=== PATIENT | male | born 1970 | race Caucasian/White ===

== ENCOUNTER 2021-03-17 10:13 | Emergency (ER) | payer MEDICAID ==
[~2021-03-17] VITALS: Ht 162.6 cm; Wt 82.0 kg
[2021-03-17] MEDS ORDERED: ASPI-1497 PO (10:19)
[2021-03-17 10:57] LABS: CHLORIDE 104 mEq/L (98-107)
[2021-03-17] MEDS ORDERED: LORAZEPAM 1MG TABLET PO ONE (11:00)
[2021-03-17] MEDS ORDERED: SODIUM CHLORIDE 0.9% 1,000 ML IV ONE (11:00)
[2021-03-17 11:01] LABS: ETHANOL BLOOD < 10 mg/dL
[2021-03-17 11:07] LABS: BASOPHILS % 0.3 % (0.0-2.0); HEMOGLOBIN. 14.2 g/dL (14.0-18.0); LYMPHOCYTES % 39.1 % (20.0-50.0); MEAN CORPUSCULAR HEMOGLOBIN 32.7 pg (28.0-32.0); MEAN PLATELET VOLUME 7.8 fl (7.4-10.4); MONOCYTES % 7.9 % (2.0-8.0); NEUTROPHILS % 50.7 % (40.0-76.0); PLATELET 354 x1000/uL (130-400); RED BLOOD CELL COUNT 4.33 mill/uL (4.7-6.1); RED CELL DISTRIBUTION WIDTH 13.2 % (11.6-14.6)
[2021-03-17] MEDS ORDERED: POTASSIUM CHLORIDE 20MEQ TABLET SR PO NR (11:15)
[2021-03-17] MEDS ORDERED: LORA-250 MT (13:11)
[2021-03-17 13:45] VITALS: BP 127/81
== END 2021-03-17 14:00 | disposition home or self-care (01) ==
LOC: ER 10:13
DX: F41.1 Generalized anxiety disorder (principal); R07.89 Other chest pain; F10.10 Alcohol abuse, uncomplicated; J45.909 Unspecified asthma, uncomplicated; F12.10 Cannabis abuse, uncomplicated; Y90.0 Blood alcohol level of less than 20 mg/100 ml; Z79.82 Long term (current) use of aspirin
CPT/HCPCS: 36415; 71045; 80053; 80320; 83690; 84484; 85025; 93005; 96360; 99285; J7030; G0480

== ENCOUNTER 2021-11-07 01:54 | Emergency (ER) | payer MEDICAID ==
[~2021-11-07] VITALS: Ht 162.6 cm; Wt 79.0 kg
[~2021-11-07 01:54] MED LIST: ASPI-1497 PO; HYDR-3992 MT; LORA-250 MT
[2021-11-07] MEDS ORDERED: PREDNISONE 20MG TABLET PO STA (02:55)
[2021-11-07] MEDS ORDERED: ALBUTEROL (0.083%) 2.5MG/3ML NEB HHN STA (02:55)
[2021-11-07] MEDS ORDERED: IPRATROPIUM BROMIDE (0.02%) 0.5MG/2.5ML NEB HHN STA (02:55)
[2021-11-07] MEDS ORDERED: ALBU6.7H9 INH (04:43)
[2021-11-07] MEDS ORDERED: P50 MT (04:43)
[2021-11-07 04:48] VITALS: BP 135/81
== END 2021-11-07 06:03 | disposition home or self-care (01) ==
LOC: ER 01:54
DX: J45.901 Unspecified asthma with (acute) exacerbation (principal); F41.9 Anxiety disorder, unspecified; Z79.899 Other long term (current) drug therapy
CPT/HCPCS: 71045; 94640; 99283; J7512; Z7610

== ENCOUNTER 2022-10-20 17:20 | Emergency (ER) | payer MEDICAID ==
[~2022-10-20] VITALS: Ht 162.6 cm; Wt 82.0 kg
[~2022-10-20 17:20] MED LIST changes: +ALBU6.7H3 INH; +P50 MT
[2022-10-20 17:25] VITALS: BP 133/86
== END 2022-10-20 19:45 | disposition left against medical advice (07) ==
LOC: ER 17:20
DX: Z53.21 Procedure and treatment not carried out due to patient leaving prior to being seen by health care provider (principal)

== ENCOUNTER 2023-09-05 18:36 | Emergency (ER) | payer MEDICAID ==
[~2023-09-05] VITALS: Ht 162.6 cm; Wt 75.0 kg
[2023-09-05] MEDS ORDERED: IPRATROPIUM BROMIDE (0.02%) 0.5MG/2.5ML NEB HHN STA (19:23)
[2023-09-05] MEDS ORDERED: PREDNISONE 20MG TABLET PO STA (19:23)
[2023-09-05 19:30] VITALS: TEMP 98.8
[2023-09-05 19:41] LABS: BASOPHILS % 0.3 % (0.0-2.0); EOSINOPHILS % 4.2 % (0.0-5.0); HEMATOCRIT. 40.5 % (42.0-52.0); HEMOGLOBIN. 13.5 g/dL (14.0-18.0); LYMPHOCYTES % 21.5 % (20.0-50.0); MEAN CORPUSCULAR HEMOGLOBIN 31.4 pg (28.0-32.0); MEAN CORPUSCULAR HGB CONC 33.4 g/dL (31.0-37.0); MEAN CORPUSCULAR VOLUME 93.9 fL (80.0-94.0); MEAN PLATELET VOLUME 8.4 fl (7.4-10.4); MONOCYTES % 9.2 % (2.0-8.0); NEUTROPHILS % 64.8 % (40.0-76.0); PLATELET 274 x1000/uL (130-400); RED BLOOD CELL COUNT 4.31 mill/uL (4.7-6.1); RED CELL DISTRIBUTION WIDTH 13.6 % (11.6-14.6); WHITE BLOOD COUNT 9.3 x1000/uL (4.5-11.0)
[2023-09-05 19:53] VITALS: PULSE 83; RESP 18; O2SAT 99
[2023-09-05] MEDS: ALBUTEROL (0.083%) 2.5MG/3ML NEB HHN SCH ×3 (19:54→21:07)
[2023-09-05 19:56] LABS: ALANINE AMINOTRANSFERASE 24 IU/L (10-49); ALBUMIN 4.4 g/dL (3.2-4.8); ASPARTATE AMINOTRANSFERASE 23 IU/L (<34); BILIRUBIN TOTAL 0.5 mg/dL (0.1-1.0); CALCIUM 8.9 mg/dL (8.7-10.4); CARBON DIOXIDE 27 mEq/L (21-32); CHLORIDE 104 mEq/L (98-107); CREATININE 0.7 mg/dL (0.6-1.3); GLUCOSE 121 mg/dL (70-105); POTASSIUM 3.9 mEq/L (3.5-5.1); PROTEIN TOTAL 7.5 g/dL (6.0-8.3); SODIUM 137 mEq/L (136-145); UREA NITROGEN BLOOD 13 mg/dL (9-23)
[2023-09-05 20:17] LABS: TROPONIN I HIGH SENSITIVITY < 4 ng/L (3.0-53)
[2023-09-05 20:48] VITALS: PULSE 88; RESP 18; O2SAT 100
[2023-09-05 21:07] VITALS: PULSE 86; RESP 18; O2SAT 99
[2023-09-05] MEDS ORDERED: ALBUTEROL (0.083%) 2.5MG/3ML NEB HHN ONE (21:15)
[2023-09-05] MEDS ORDERED: P20 MT (21:34)
[2023-09-05] MEDS ORDERED: ALBU6.7H15 INH (21:34)
[2023-09-05 22:00] VITALS: BP 118/70; PULSE 108; RESP 20
== END 2023-09-05 22:00 | disposition home or self-care (01) ==
LOC: ER 18:36
DX: J45.901 Unspecified asthma with (acute) exacerbation (principal)
CPT/HCPCS: 80053; 85025; 84484; 36415; 71045; 94640; 93005; 99285; J7512; Z7610 ×3

== ENCOUNTER 2023-10-05 01:59 | Emergency (ER) | payer MEDICAID ==
[~2023-10-05] VITALS: Ht 160 cm; Wt 77.9 kg
[~2023-10-05 01:59] MED LIST changes: +ALBU6.7H15 INH; +P20 MT
[2023-10-05 02:24] VITALS: BP 120/78; PULSE 62; RESP 15; TEMP 98.5; O2SAT 98
[2023-10-05 02:46] LABS: BASOPHILS % 0.6 % (0.0-2.0); EOSINOPHILS % 4.2 % (0.0-5.0); HEMATOCRIT. 42.8 % (42.0-52.0); HEMOGLOBIN. 14.5 g/dL (14.0-18.0); LYMPHOCYTES % 36.3 % (20.0-50.0); MEAN CORPUSCULAR HGB CONC 33.9 g/dL (31.0-37.0); MEAN CORPUSCULAR VOLUME 91.5 fL (80.0-94.0); MEAN PLATELET VOLUME 8.1 fl (7.4-10.4); MONOCYTES % 12.2 % (2.0-8.0); NEUTROPHILS % 46.7 % (40.0-76.0); PLATELET 282 x1000/uL (130-400); RED BLOOD CELL COUNT 4.68 mill/uL (4.7-6.1); RED CELL DISTRIBUTION WIDTH 13.9 % (11.6-14.6); WHITE BLOOD COUNT 7.5 x1000/uL (4.5-11.0)
[2023-10-05 02:54] LABS: PARTIAL THROMBOPLASTIN TIME 28.1 sec (23.4-31.0); PROTHROMBIN TIME 10.3 sec (9.6-11.0)
[2023-10-05 02:59] LABS: ALANINE AMINOTRANSFERASE 26 IU/L (10-49); ALBUMIN 4.2 g/dL (3.2-4.8); ASPARTATE AMINOTRANSFERASE 24 IU/L (<34); BILIRUBIN TOTAL 0.8 mg/dL (0.1-1.0); CARBON DIOXIDE 22 mEq/L (21-32); CHLORIDE 107 mEq/L (98-107); CREATININE 0.7 mg/dL (0.6-1.3); GLUCOSE 101 mg/dL (70-105); PROTEIN TOTAL 7.6 g/dL (6.0-8.3); SODIUM 137 mEq/L (136-145); UREA NITROGEN BLOOD 10 mg/dL (9-23)
[2023-10-05 03:20] LABS: TROPONIN I HIGH SENSITIVITY < 4 ng/L (3.0-53)
== END 2023-10-05 04:34 | disposition left against medical advice (07) ==
LOC: ER 01:59
DX: J45.909 Unspecified asthma, uncomplicated (principal); I49.9 Cardiac arrhythmia, unspecified
CPT/HCPCS: 36415; 71045; 80053; 84484; 85025; 93005; 99281

== ENCOUNTER 2024-05-11 02:27 | Emergency (ER) | payer MEDICAID ==
[~2024-05-11] VITALS: Ht 160 cm; Wt 81.6 kg
[2024-05-11 02:37] VITALS: BP 140/90; TEMP 98.3; O2SAT 99
[2024-05-11] MEDS: DEXAMETHASONE 10 MG/ML VIAL IM ONE (02:45)
[2024-05-11] MEDS ORDERED: IPRATROPIUM/ALBUTEROL 0.5-3(2.5)MG/3ML NEB HHN ONE (02:45)
[2024-05-11 03:00] VITALS: PULSE 72; RESP 16
[2024-05-11] MEDS ORDERED: IPRATROPIUM BROMIDE (0.02%) 0.5MG/2.5ML NEB HHN STA (03:59)
[2024-05-11] MEDS ORDERED: ALBUTEROL (0.083%) 2.5MG/3ML NEB HHN STA (03:59)
[2024-05-11] MEDS ORDERED: ASPIRIN 81MG TABLET PO ONE (04:00)
[2024-05-11] MEDS ORDERED: NITROGLYCERIN 0.4MG TABLET SL SL PRN (04:00)
[2024-05-11 04:42] LABS: BASOPHILS % 0.8 % (0.0-2.0); EOSINOPHILS % 5.7 % (0.0-5.0); HEMATOCRIT. 40.6 % (42.0-52.0); HEMOGLOBIN. 13.8 g/dL (14.0-18.0); MEAN CORPUSCULAR HEMOGLOBIN 31.8 pg (28.0-32.0); MEAN CORPUSCULAR HGB CONC 34.1 g/dL (31.0-37.0); MEAN CORPUSCULAR VOLUME 93.3 fL (80.0-94.0); MEAN PLATELET VOLUME 8.4 fl (7.4-10.4); MONOCYTES % 11.5 % (2.0-8.0); PLATELET 269 x1000/uL (130-400); RED BLOOD CELL COUNT 4.35 mill/uL (4.7-6.1); RED CELL DISTRIBUTION WIDTH 13.7 % (11.6-14.6); WHITE BLOOD COUNT 9.3 x1000/uL (4.5-11.0)
[2024-05-11 04:50] LABS: CHLORIDE 105 mEq/L (98-107); POTASSIUM 3.6 mEq/L (3.5-5.1); SODIUM 138 mEq/L (136-145)
[2024-05-11 04:51] LABS: CALCIUM 9.4 mg/dL (8.7-10.4); CARBON DIOXIDE 25 mEq/L (21-32)
[2024-05-11 04:56] LABS: CREATININE 0.8 mg/dL (0.6-1.3); GLUCOSE 146 mg/dL (70-105); UREA NITROGEN BLOOD 12 mg/dL (9-23)
[2024-05-11 05:26] LABS: TROPONIN I HIGH SENSITIVITY < 4 ng/L (3.0-53)
[2024-05-11] MEDS: ASPIRIN 81MG TABLET PO NR (05:50)
[2024-05-11] MEDS ORDERED: P20 MT (06:04)
[2024-05-11] MEDS ORDERED: ALBU6.7H15 INH (06:04)
== END 2024-05-11 06:49 | disposition home or self-care (01) ==
LOC: ER 02:37
DX: J45.901 Unspecified asthma with (acute) exacerbation (principal); R07.9 Chest pain, unspecified; M79.601 Pain in right arm; Z79.899 Other long term (current) drug therapy
CPT/HCPCS: 80048; 85025; 84484; 36415; 71045; 94640; 93005; 96372; 99285; Z7610 ×4; J1100